=== PATIENT | female | born 1960 | race Caucasian/White ===

== ENCOUNTER 2018-10-05 11:37 | Day surgery (SDC) | payer OTHER ==
[~2018-10-05 11:37] MED LIST: Buffered Lidocaine 0.9% SYRIN* 5 ML/SYR SYRINGE INTRADERM ONE; Dexamethasone IV* 4 MG/ML 1 ML (4 MG) IV SLOW PU ONE; Lactated Ringers 1000 ML Bag* 1,000 ML IV SCH
[2018-10-05] MEDS ORDERED: ceFAZolin 2 GM PREMIX in ORs 0 GM/0 ML BAG IVPB ONE (13:05)
[2018-10-05] MEDS ORDERED: Dexamethasone IV* 4 MG/ML 1 ML (4 MG) ONE (13:05)
[2018-10-05] MEDS ORDERED: Clindamycin 900 MG/D5W BAG(*) 900 MG/50 ML BAG IVPB ONE (13:52)
[2018-10-05] MEDS ORDERED: Midazolam* 1 MG/ML 5 ML VIAL (5 MG) ONE (14:51)
[2018-10-05] MEDS ORDERED: Ondansetron INJ* 2 MG/ML VIAL ONE (14:51)
[2018-10-05] MEDS ORDERED: Propofol* 10 MG/ML 20 ML BTL ONE (14:51)
[2018-10-05] MEDS ORDERED: fentaNYL* 50 MCG/ML 2 ML VIAL (100 MCG VIAL) ONE ×2 (14:51→16:25)
[2018-10-05] MEDS ORDERED: ROPIVACAINE 5 MG/ML 30 ML BTL (0.5%) ONE (15:26)
[2018-10-05] MEDS ORDERED: EPINEPHRINE 1 MG/ML 1 ML VIAL ONE (15:51)
[2018-10-05] MEDS ORDERED: Bupivacaine 0.5% W/EPI SDV* 30 ML VIAL ONE (16:25)
[2018-10-05] MEDS ORDERED: Scopolamine 1.5 mg* PATCH TRANSDERM PRN (16:27)
[2018-10-05] MEDS ORDERED: DiMENhydriNATE IV* 50 MG/ML VIAL IV PUSH PRN (16:27)
[2018-10-05] MEDS ORDERED: Naloxone* 0.4 MG/ML 1 ML VIAL IV PRN (16:27)
[2018-10-05] MEDS ORDERED: Ondansetron INJ* 2 MG/ML VIAL IV PRN (16:27)
[2018-10-05] MEDS ORDERED: fentaNYL* 50 MCG/ML 2 ML VIAL (100 MCG VIAL) IV PRN (16:27)
[2018-10-05] MEDS ORDERED: HYDROmorphone INJ1* 1 MG/ML SYRINGE IV PRN (16:27)
[2018-10-05] MEDS ORDERED: oxyCODONE/Acetamin 5/325 MG* TAB PO PRN (16:27)
[2018-10-05] MEDS ORDERED: Glycopyrrolate IV* 0.2 MG/ML 1 ML VIAL ONE (17:23)
[2018-10-05] MEDS ORDERED: Neostigmine Methylsulfate* 1 MG/ML 10 ML VIAL (1 mg/ml) ONE (17:23)
[2018-10-05 18:31] VITALS: BP 111/67
--- NOTE | 2018-10-07 17:58 | OP ---
OPERATIVE REPORT: DATE OF OPERATION: 10/05/18 DATE OF : 58 SURGEON: Rashaun Byrd MD RN PARALEGAL: BYRON Wright ANESTHESIOLOGIST: Dr. Favio Lawrence. ANESTHESIA: General anesthesia, regional interscalene block anesthesia. PRE-OP DIAGNOSES: 1. Right shoulder acromioclavicular joint osteoarthritis. 2. Right shoulder subacromial impingement. 3. Right shoulder rotator cuff tendinitis. 4. Possible right shoulder rotator cuff tendon tear, superior subscapularis. 5. Right shoulder possible biceps tendinosis. POST-OP DIAGNOSES: 1. Right shoulder acromioclavicular joint osteoarthritis. 2. Right shoulder subacromial impingement. 3. Right shoulder rotator cuff tendinitis, subscapularis, supraspinatus. 4. Right shoulder proximal biceps tendinosis and superior labrum tear. OPERATIVE PROCEDURE: 1. Right shoulder arthroscopic distal clavicle resection. 2. Right shoulder arthroscopic subacromial decompression. 3. Right shoulder arthroscopic debridement including release of biceps tendon. 4. Right shoulder arthroscopic evaluation of rotator cuff. IV FLUIDS: See anesthesia note. ANTIBIOTICS: Clindamycin 900 mg IV. QFIO-EL-WRJY TIME: 35 minutes. ARTHROSCOPY FLUID UTILIZED: The circulating nurse was unaware when I asked. SPECIMEN: None. IMPLANTS: None. 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 It owne d worsened over time despite nonoperative management consisting of NSAIDs, physical therapy, home exe rcises. The patient opted for surgical management. MRI had as its most significant finding significant degenerative changes about the AC joint with some subchondral cyst and other erosive changes. There was significant fatty atrophy of the superior asp ect of subscapularis muscle, but there was no clear subscapularis tear both on my read and by radiolo gist's read. I spoke to the patient about evaluation and treatment of biceps tendon. I spoke about release versus tenodesis and the patient favored release. I discussed risks and potential complicati ons of surgery. DESCRIPTION OF PROCEDURE: In preoperative holding, the patient signed a written consent. Operative extremity was marked in preoperative holding. The patient underwent an interscalene nerve block by Ramona Lawrence. The patient was taken to the operating room and placed supine on the operating room tab le. Sedated and intubated. Converted into the lateral decubitus position. Axillary roll placed. Al l bony prominences padded. The beanbag was hardened. A longitudinal traction for the right shoulder with 15 pounds and the appropriate amount of forward flexion and abduction. Right shoulder was prep ped and draped. Surgical time-out performed. A spinal needle was entered into the glenohumeral joint from posterior. 30 cc of normal saline infus ed. I established a posterior glenohumeral joint portal using standard technique. No clear articula r cartilage injury present. No supraspinatus undersurface tear. I established anterior glenohumeral joint portal under direct visualization. I probed the superior labrum and identified a tear there. I pulled some of the biceps tendon into th e joint demonstrating some tendinosis along the long head biceps tendon. I entered an arthroscopic s cissors and cut the long head biceps tendon just off its origin. I noted a Golf complex with a cord-like middle glenohumeral ligament and a sublabral foramen. I examined the subscapularis very well. There was some inflamed tissue that I debrided for better vi sualization and to confirm that there was no clear tear, anything approaching any high-grade partial- thickness or full-thickness tear. There were a couple of fibers of fraying at the anterior most supraspinatus but nothing of significan ce. I next moved to the subacromial space. I established a lateral and then a posterolateral portal unde r direct visualization. The patient had significant bursitis. I debrided this with an arthroscopic shaver. I visualized well the rotator cuff. I probed it and visualized and confirmed no tear. I entered an arthroscopic bur from lateral and debrided the anterior curve of the undersurface of the acromion, flattening out the acromion. I next addressed the AC joint. I debrided bursitic tissue about the joint with a vapor. I next debr ided at least 8 mm at the distal end of the clavicle as well as several millimeters of the acromion, being especially thorough since the main pathology of this patient's shoulder pain I believe was due to her AC joint arthritis and I wanted to make sure to decompress the subchondral cyst. Excellent op ening up of the AC joint confirmed. Removed fluid and instruments from subacromial space. Closed skin incisions with [id number] in 12 stitches using nylon 3.0 suture. Xeroform, 4x4s, ABDs, foam tape. The patient was placed in a sl ing. She was awakened, extubated, and brought to the PACU. DISPOSITION: The patient was discharged home when medically stable. She was placed on Percocet as n eeded for pain control. Sling will be as needed. The patient can wean out of it. The patient can s tart physical therapy immediately. The patient will follow up with me in 10 to 14 days postoperative for a wound check and removal of stitches. [id number]/[facility] #: [id number]
== END 2018-10-05 18:33 | disposition home or self-care (01) ==
LOC: OR 11:37
PROVIDERS: ATTEND Orthopaedic Surgery
DX: M19.011 Primary osteoarthritis, right shoulder (principal); M75.41 Impingement syndrome of right shoulder; M75.21 Bicipital tendinitis, right shoulder; M24.811 Other specific joint derangements of right shoulder, not elsewhere classified; K21.9 Gastro-esophageal reflux disease without esophagitis; Z87.891 Personal history of nicotine dependence
CPT/HCPCS: J0690; J1100; J2250; J2405; J2704; J2710; J2795; J3010